=== PATIENT | male | born 1990 | race Caucasian/White ===

== ENCOUNTER 2019-03-27 20:33 | Emergency (ER) | payer OTHER, SELFPAY ==
[2019-03-27 20:35] VITALS: BP 166/129; PULSE 91; RESP 16; TEMP 36.7; O2SAT 100
--- NOTE | 2019-03-27 20:59 | ED.HEATRA ---
HPI - Head Injury General Chief complaint: Head Injury Stated complaint: head injury Time Seen by Provider: 03/27/19 20:38 Source: patient Mode of arrival: ambulatory Limitations: no limitations History of Present Illness HPI Narrative: The pt is a 29 y/o male who presents to the ED c/o head injury onset today. Pt states that he was playing soccer when the goalkeeper came out and lunged for the ball, leading to both of them striking heads. He states that he did not lose consciousness. The pt denies YOUSIF, but notes that he has a laceration to the left forehead. Pt reports that he has a PMHx of depression, HTN, and hernia. He notes that he has a PSHx of hernia repair. Pt states that he smokes marijuana, but uses no other drugs, cigarettes, or alcohol. MD Complaint: head injury Mechanism of Injury: sports related injury Place: outdoors Loss of Consciousness: no Location of injury: frontal Other Injuries: laceration (Left forehead) Related Data Allergies Allergy/AdvReac Type Severity Reaction Status Date / Time No Known Allergies Allergy Verified 03/27/19 20:48 Review of Systems Review of Systems: All systems reviewed & are unremarkable except as noted in HPI and below Integumentary/Breasts: Skin/Breast: Reports other (Laceration to the left forehead) Neurologic: Denies headache(s) and Reports other (Reports: Head injury; Denies: LOC) [facility] Past Medical History Medical History (Updated 03/28/19 @ 00:00 by Brando Kenny) Depression Hernia HTN (hypertension) Surgical History Surgical History (Updated 03/27/19 @ 21:06 by Steven Vyas) H/O hernia repair Social History Social History (Updated 03/27/19 @ 21:06 by Steven Vyas) Smoking status: Never smoker Substance use: current Substance use type: marijuana Exam Const: General: no acute distress and alert Orientation/consciousness: patient oriented x3 HENMT: Head: normocephalic and laceration (left eye brow - 3 cm stellate laceration with subcutaneous tissue exposure) General nose exam: Normal external nose present Mouth: Yes Normal oral and palatal mucosa present and Yes lip normal Teeth and gingiva: dentition normal Eyes: Conjunctivae: conjunctivae normal Pupils: Equal, round and reactive pupils present Resp: Effort & Inspection: normal respiratory effort Skin: Other: see head for left eye brow laceration Course Vital Signs Vital signs: Vital Signs Temperature 98.0 F 03/27/19 20:35 Pulse Rate 91 03/27/19 20:35 Respiratory Rate 16 03/27/19 20:35 Blood Pressure 166/129 H 03/27/19 20:35 Pulse Oximetry 100 03/27/19 20:35 Temperature 98.2 F 03/27/19 22:18 Pulse Rate 80 03/27/19 22:18 Respiratory Rate 20 03/27/19 22:18 Blood Pressure 120/80 03/27/19 22:18 Pulse Oximetry 99 03/27/19 22:18 Procedures Laceration Laceration 1: Date: 03/27/19 Time: 22:07 Site: face (left eye brow) Side (If applicable): left Size (cm): 3 Description: stellate Depth: simple, single layer Local Anesthetic: lidocaine 1% and with epi Amount of anesthesia used (mL): 2 Pre-repair: irrigated ====== Skin Level ====== Skin layer closed with: other (fast absorbing gut) Size (cm): 5-0 Number of sutures: 13 Technique: simple, interrupted ====== Subcutaneous Layer ====== ====== Muscle Layer ====== ====== Tendon Layer ====== Dressing: antibiotics ointment applied to wound Discharge Plan Discharge Clinical Impression: Laceration of eyebrow, left Patient Disposition: Home, Self-Care Condition: Stable Instructions: Antibiotic Form, Care For Your Absorbable Stitches (ED), Facial Laceration (ED) Follow-up/Referrals: UNKNOWN,DOCTOR [Primary Care Provider] - Discharge Date/Time: 03/27/19 22:18
[2019-03-27] MEDS: LIDO 1%/EPINEPHRINE 1:100,000 20 ML VIAL INFILTRATE (22:17)
[2019-03-27] MEDS: POVIDONE-IODINE 10% SOLUTION 118 ML BOTTLE TOPICAL (22:17)
[2019-03-27 22:18] VITALS: BP 120/80; PULSE 80; RESP 20; TEMP 36.8; O2SAT 99
== END 2019-03-27 22:18 | disposition home or self-care (01) ==
PROVIDERS: Emergency Provider General Practice
DX: S01.112A Laceration without foreign body of left eyelid and periocular area, initial encounter (principal); Y93.66 Activity, soccer; W51.XXXA Accidental striking against or bumped into by another person, initial encounter; I10 Essential (primary) hypertension
CPT/HCPCS: 12013; 99282